=== PATIENT | female | born 1995 | race Caucasian/White ===

== ENCOUNTER 2019-09-09 01:33 | Day surgery (SDC) | payer OTHER, SELFPAY ==
--- NOTE | 2019-09-07 14:41 | PM.IMHP ---
H&P: HPI History of Present Illness Chief complaint: left ovarian cyst Narrative: Lia Ontiveros is a 23 year old female 0 was admitted for laparoscopy and left cystectomy. She has had pain and discomfort for more than a month. Originally she had fever and vomiting and some loose stools. She then developed left lower quadrant pain. Her STD testing was negative and the pain has worsened. She underwent ultrasound which showed a complex cystic structure in the left ovary. There is I suggested fluid present as well as free fluid bilaterally. Risks and benefits of laparoscopy were reviewed. She has a history of endometriosis and has undergone laparoscopy in the past she had all questions answered. She asked to proceed Review of Systems Review of Systems: All systems reviewed & are unremarkable except as noted in HPI and below Meds Home Medications and Allergies Allergies Allergy/AdvReac Type Severity Reaction Status Date / Time No Known Allergies Allergy Unverified 09/13/18 08:36 Exam Const: General: no acute distress Eyes: General: appearance normal, both eyes and all related structures Neck: Neck: supple and no JVD Thyroid: thyroid normal Resp: Effort & Inspection: normal respiratory effort Auscultation: clear to auscultation bilaterally Cardio: Rate: regular rate Rhythm: regular rhythm GI: Inspection: non-distended GI Palp: Yes Soft to palpation, No Tenderness to palpation present (GI) and No Guarding due to palpation present (GI) Auscultation: normal bowel sounds : External Female Exam: normal external appearance Speculum Exam - Vagina: normal appearance of the vagina and normal vaginal discharge Speculum Exam - Cervix: normal appearance of the cervix and Cervical tenderness present (bilateral left greater and full) Bimanual exam- vagina & uterus: uterine size normal Skin: General skin exam: no rashes or lesions noted Extrem: General: normal to inspection and no edema Psych: Mental Status: mental status grossly normal Affect: normal affect Assessment and Plan Additional Plan impression: Complex left ovarian cyst and pelvic pain Plan: laparoscopy with left ovarian cystectomy
[2019-09-07 14:46] VITALS: BMI 31.9
[2019-09-09] VITALS (8 sets, daily range): BP systolic 83–127; BP diastolic 37–74; PULSE 63–98; RESP 14–19; TEMP 36.2–36.4; O2SAT 97–100
--- NOTE | 2019-09-09 06:52 | WPDHPUPDATE1 ---
History and Physical Update Update Date/Time: 09/09/19 06:52 History and Physical has been reviewed, including an updated exam of the patient. There are NO changes in the patient's condition. Risks, benefits, and alternatives have been discussed and questions answered. Patient agrees to proceed with procedure.
[2019-09-09] MEDS: LACTATED RINGERS 1,000 ML 30 ML IV CONT ×2 (08:45→10:33)
[2019-09-09] MEDS: SCOPOLAMINE 1.5 MG PATCH TRANSDERM (09:19)
[2019-09-09] MEDS: ONDANSETRON INJ 4 MG/2 ML VIAL IV PUSH (09:19)
--- NOTE | 2019-09-09 10:23 | PM.PROC ---
Procedure Note - Detailed Date of procedure: 09/09/19 Pre-op diagnosis: left ovarian cyst Surgeon: Nicolas Pinto MD Postop diagnosis: Hemorrhagic cyst with hemato peritoneum Procedure: Laparoscopy with destruction of left ovarian cyst Anesthesia: General endotracheal EBL: 5cc Findings: Normal-appearing right ovary and tube normal appearing uterus, about 4cm hemorrhagic cyst with blood in the peritoneum. Normal-appearing appendix Complications: None Description of procedure the patient was prepped and draped in the normal sterile fashion and placed in the dorsal lithotomy position. Under excellent general endotracheal anesthesia weighted speculum placed in posterior fornix of vagina. The anterior lip of the cervix was grasped with a single-tooth tenaculum. The Clark's cannula was inserted the cervix and attached to the single-tooth to be used later for uterine manipulation. The bladder was drained of clear fluid. The remainder of the instruments removed. The gloves were changed. The Veress needle was passed in the abdomen after a infraumbilical incision was made with the 11 blade. This was the abdomen was filled [id number]. The 5mm trocar was advanced directly in the abdomen. No injury seen hemato perineum and the remainder of the findings were noted. A suprapubic incision made and the 5mm trocar advanced under direct visualization assuring no injury. The metal peritoneum was irrigated. A 4-5 cm hemorrhagic cyst was seen on the left ovary. This was opened in linear fashion and the clot and debris removed removed. Hemostasis was assured in the ovary appeared normal after this procedure. The lower site was then removed. The upper site removed after gas removed from the peritoneum. The incisions were closed with 4 Monocryl and glue. The patient went to recovery in satisfactory condition. All sponge, needle, instrument counts were correct. There were no immediate complications
[2020-09-10 14:28] VITALS: BMI 28.0
== END 2019-09-09 12:27 | disposition home or self-care (01) ==
PROVIDERS: PCP Internal Medicine; Visit Provider Obstetrics & Gynecology
PROC: (CPT 49320; principal; 2019-09-09 09:30)
DX: N83.202 Unspecified ovarian cyst, left side (principal); R10.2 Pelvic and perineal pain
CPT/HCPCS: 58662; 36415; 86850; 86900; 86901; A9270; J0330; J1100; J2250; J2405; J2704; J3010; J7030; J7120

== ENCOUNTER 2020-09-03 13:45 | Outpatient (CLI) | payer OTHER, SELFPAY ==
--- NOTE | ~2020-09-03 | US_ITS ---
EXAMINATION: US pelvic complete w TV DATE: 09/03/2020 15:24 INDICATION: Pelvic pain. TECHNIQUE: Multiple transabdominal and transvaginal sonographic images of the pelvis were obtained. COMPARISON: None. FINDINGS: TRANSABDOMINAL ULTRASOUND: The uterus measures 6.0 x 3.1 x 4.1 cm. There is no free fluid in the pelvis. TRANSVAGINAL ULTRASOUND: The endometrial complex measures 9 mm in thickness. The right ovary measures 5.7 x 5.0 x 4.9 cm. In t he right ovary, there is a 4.8 cm mixed solid and cystic mass without internal vascular flow. The lef t ovary measures 1.9 x 1.4 x 1.9 cm. There is normal vascular flow in the ovaries. IMPRESSION: 1. 4.7 cm mass in right ovary, likely a hemorrhagic cyst. Pelvis ultrasound is recommended in 6-12 we eks. Reviewed, dictated and finalized at location A. [employer] IMPRESSION: 1. 4.7 cm mass in right ovary, likely a hemorrhagic cyst. Pelvis ultrasound is recommended in 6-12 weeks.
[2020-09-03 13:57] LABS: Basophils Absolute Auto 0.05 K/mm3 (0.00-0.10); Basophils Percent Auto 0.5 % (0.0-1.0); Eosinophils Absolute Auto 0.04 K/mm3 (0.02-0.50); Eosinophils Percent Auto 0.4 % (1.0-6.0); Hemoglobin 12.9 g/dL (12.0-15.0); Immature Granulocyte Absolute 0.02 K/mm3 (0.00-0.00); Immature Granulocyte Percent A 0.2 % (0.0-0.0); Lymphocytes Absolute Auto 2.37 K/mm3 (1.10-4.50); Mean Corpuscular HGB Conc 33.1 g/dL (32.0-36.0); Mean Corpuscular Hemoglobin 28.9 pg (27.0-31.0); Mean Corpuscular Volume 87.4 fL (78.0-102.0); Mean Platelet Volume 9.9 fl (9.2-11.8); Monocytes Absolute Auto 0.45 K/mm3 (0.10-0.90); Monocytes Percent Auto 4.6 % (2.0-11.0); Neutrophils Percent Auto 70.3 % (50.0-70.0); Platelet Count Result 297 K/mm3 (150-420); Red Blood Count 4.46 M/mm3 (4.20-5.40); Red Cell Distribution Width 12.4 % (11.6-14.4); White Blood Count 9.9 K/mm3 (4.8-10.8)
[2020-09-03 14:13] LABS: Alanine Aminotransferase 27 U/L (14-59); Albumin Level 4.2 g/dL (3.4-5.0); Alkaline Phosphatase 59 U/L (46-116); Anion Gap 11 mmol/L (8-16); Aspartate Amino Transferase 15 U/L (15-37); Bilirubin,Total 0.4 mg/dL (0.00-1.00); Blood Urea Nitrogen 8 mg/dL (7-18); Calcium 8.6 mg/dL (8.5-10.1); Carbon Dioxide 27 mmol/L (21-32); Chloride 102 mmol/L (98-108); Estimated Glomerular Filt Rate > 60; Glucose 121 mg/dL (70-99); Osmolality Calculated 289 mOsm/kg (285-295); Potassium 3.6 mmol/L (3.5-5.1); Sodium 140 mmol/L (136-145); Total Protein 7.8 g/dL (6.4-8.2)
[2020-09-03 14:14] LABS: SPREG INTERNAL CONTROL Positive; Serum Qual hCG Negative
[2020-09-03 14:52] LABS: Add Urine Microscopic? YES; Appearance Urine Clear (Clear); Bilirubin Urine Negative (Negative); Blood Urine Negative (Negative); Color Urine Yellow (Yellow); Glucose Urine UA Negative (Negative); Ketones Urine Negative (Negative); Leukocyte Esterase Ur Trace (Negative); Nitrate Urine Negative (Negative); Protein Urine Negative (Negative); Specific Grav Ur 1.025 (1.010-1.020); Urobilinogen Urine 0.2 mg/dL (0.2-1.0)
[2020-09-03 15:02] LABS: Bacteria Urine 1+ /hpf; Mucus Urine Moderate /lpf; RBC Urine None seen /hpf (0-2); Squamous Epithelial Cell Urine Few /hpf (Few); WBC Urine 0-3 /hpf (0-3)
== END 2020-09-03 13:46 | disposition home or self-care (01) ==
LOC: CHSLAB 13:47
PROVIDERS: PCP Internal Medicine; Visit Provider Internal Medicine
DX: R10.2 Pelvic and perineal pain (principal); N80.9 Endometriosis, unspecified
CPT/HCPCS: 36415; 76830; 76856; 80053; 81001; 84703; 85025

== ENCOUNTER 2020-09-11 00:22 | Outpatient (CLI) | payer OTHER, SELFPAY ==
[2020-09-11 19:18] LABS: SARS-CoV-2 RNA PCR Negative
== END 2020-09-11 00:23 | disposition home or self-care (01) ==
LOC: ANHCOVIDDT 00:22
PROVIDERS: PCP Internal Medicine; Visit Provider Obstetrics & Gynecology
DX: Z20.822 Contact with and (suspected) exposure to COVID-19 (principal)
CPT/HCPCS: C9803; U0003; U0005

== ENCOUNTER 2020-09-11 08:26 | Outpatient (CLI) | payer OTHER, SELFPAY | END 2020-09-11 08:27 | disposition home or self-care (01) | LOC: ANHSURGERY 08:31 | PROVIDERS: PCP Internal Medicine; Visit Provider Obstetrics & Gynecology | DX: N83.201 Unspecified ovarian cyst, right side (principal) | CPT/HCPCS: 36415; 86850; 86900; 86901 ==

== ENCOUNTER 2020-09-14 01:37 | Day surgery (SDC) | payer OTHER, SELFPAY ==
[2020-09-10 14:46] VITALS: BMI 28.0
--- NOTE | 2020-09-11 10:10 | P.HP_ITS ---
H&P: HPI History of Present Illness Date/Time: 09/11/20 10:10 Chief Complaint: pain/r ov cyst Narrative: Lia Ontiveros is a 24 year old female G0 who is admitted for diagnostic laparoscopy right ovarian cystectomy, and possible right salpingo-oophorectomy. She had pain discomfort and dyspareunia. She has a history of endometriosis. She has an ultrasound showing a 5x5cm complex cyst. Risks and benefits reviewed including gas was of , aspiration pneumonia, bleeding, transfusion, perforation injury to bowel, bladder, ureters, or other internal organs with need for laparotomy. She received the [employer] handout entitled laparoscopy. She had all questions answered. She asked to proceed Review of Systems Review of Systems: All systems reviewed & are unremarkable except as noted in HPI and below PMFSH Past Medical History Medical History Healthy adult Social History Social History Smoking status: Never smoker Second hand tobacco smoke exposure: No Alcohol intake: current Drinks per week: 1 Substance use: never Substance use type: does not use Additional living arrangements comments: LIVES WITH [facility] Spiritual care concerns: No Meds Home Medications and Allergies Home Medications Medication Instructions Recorded Confirmed Type No Home Medications 09/10/20 09/10/20 History Allergies Allergy/AdvReac Type Severity Reaction Status Date / Time No Known Allergies Allergy Unverified 09/10/20 14:27 Exam Const: General: no acute distress Eyes: General: appearance normal, both eyes and all related structures Neck: Neck: supple and no JVD Thyroid: thyroid normal Resp: Effort & Inspection: normal respiratory effort Auscultation: clear to auscultation bilaterally Cardio: Rate: regular rate Rhythm: regular rhythm GI: Inspection: non-distended GI Palp: Yes Soft to palpation, No Tenderness to palpation present (GI) and No Guarding due to palpation present (GI) Auscultation: normal bowel sounds : General: Yes bladder normal to inspection External Female Exam: normal external appearance Speculum Exam - Vagina: normal appearance of the vagina Speculum Exam - Cervix: normal appearance of the cervix Bimanual exam- vagina & uterus: uterine size normal Bimanual Exam- Adnexa, other: tender and Adnexal mass present on the right tender Skin: General skin exam: no rashes or lesions noted Extrem: General: normal to inspection and no edema Psych: Mental Status: mental status grossly normal Affect: normal affect Assessment and Plan Additional Plan impression: Complex right ovarian cyst and pain Plan: Laparoscopic right ovarian cystectomy / possible right salpingo- oophorectomy
--- NOTE | 2020-09-13 16:41 | WPDANESEPPF ---
Anes - Initial Pre Proc Eval Procedure: Operation Date: 09/14/20 10:30 Proposed Procedures p Laparoscopy Right Ovarian Cystectomy, Possible Right Salpingo Oophorectomy - Nicolas Pinto MD Date/Time: 09/13/20 16:41 Surgeon: Nicolas Pinto MD Pre Op Diagnosis: Pelvic Pain, Right Ovarian Mass Patient Data Age: 24 Gender: F Height: 1.73 m Weight: 83.63 kg Allergies Allergy/AdvReac Type Severity Reaction Status Date / Time No Known Allergies Allergy Unverified 09/10/20 14:27 Home Medications Medication Instructions Recorded Confirmed Type hydrocodone-acetaminophen 1 tablet PO Q4H PRN #30 tablet 09/14/20 Rx Patient hx anesthesia problems: none Family hx anesthesia problems: none PMFSH Past Medical History Medical History (Updated 09/14/20 @ 07:09 by Nicolas Pinto MD) Endometriosis Healthy adult Overweight (BMI 25.0-29.9) Scoliosis Social History Social History Smoking status: Never smoker Second hand tobacco smoke exposure: No Alcohol intake: current Drinks per week: 1 Substance use: never Substance use type: does not use Living arrangements: other Additional living arrangements comments: LIVES WITH [facility] Spiritual care concerns: No Anes - Eval Final PreProcedure Day of Procedure 09/13/20 16:41 Patient weight: overweight Heart: regular rate and rhythm Lungs: clear to auscultation and normal air movement Airway: Mallampati scale class II Neurological: alert and oriented Last oral intake: >/= 8 hours ASA classification: II Emergent: no Anesthetic plan: proceed Anesthesia type and monitoring: general ETT Informed Consent: The patient's anesthetic plan and its attendant risks and benefits were discussed with the patient/family/POA. Questions were solicited and answers provided to the satisfaction of the patient/family/POA.
[2020-09-14] VITALS (9 sets, daily range): BP systolic 93–125; BP diastolic 51–81; PULSE 51–85; RESP 11–18; TEMP 36.4–36.7; O2SAT 99–100; BMI 29.3
--- NOTE | 2020-09-14 07:08 | WPDHPUPDATE1 ---
History and Physical Update Update Date/Time: 09/14/20 07:08 History and Physical has been reviewed, including an updated exam of the patient. There are NO changes in the patient's condition. Risks, benefits, and alternatives have been discussed and questions answered. Patient agrees to proceed with procedure.
[2020-09-14] MEDS: LACTATED RINGERS 1,000 ML 30 ML IV CONT ×2 (09:08→11:23)
[2020-09-14] MEDS: ACETAMINOPHEN 500 MG TABLET 1000 MG PO (09:09)
[2020-09-14] MEDS: KETOROLAC 15 MG/ML VIAL (*BKC) IV PUSH (09:09)
--- NOTE | 2020-09-14 11:24 | PM.PROC ---
Procedure Note - Detailed Date of procedure: 09/14/20 Pre-op diagnosis: Pelvic Pain, Right Ovarian Mass Surgeon: Nicolas Pinto MD Postop diagnosis: Pelvic pain/right ovarian cyst/endometriosis Anesthesia: General endotracheal Procedure: Laparoscopic destruction of right ovarian cyst. Destruction of left ovarian cyst. Destruction of endometriosis. EBL: 5cc Findings: Normal-appearing uterus. A large right follicular cyst which was drained of clear fluid. Endometrial implants along the right and left uterus sacral ligaments. Complications: None Description of procedure: The patient was prepped draped in normal sterile fashion and placed in the dorsal lithotomy position. Under excellent general endotracheal anesthesia weighted speculum was placed in the posterior fornix of vagina. Anterior lip of the cervix grasped with a single-tooth tenaculum and the Clark's cannula inserted and attached to be used later for uterine manipulation. The bladder was emptied of clear urine. The weighted speculum was removed. The gloves were changed. An infraumbilical incision made and the Veress needle passed in the abdomen. The abdomen was filled with CO2 gas [id number]. The 5mm trocar advanced in the abdomen under direct visualization assuring no injury. The patient placed in Trendelenburg and a suprapubic incision made. Endometrial implants were seen along the left and right uterosacral ligament. The left ovary was adherent to a endometrial implant in the ovarian fossa. This was sharply dissected and the endometrial implant destroyed with monopolar cautery. The uterus sacral ligament on the right contained an endometrial implant and this was grasped and biopsied and sent for pathology pathological review. Irrigation was undertaken to clear the large right ovarian cyst was opened in linear fashion and drained of serous fluid the interior of the cyst appeared benign and non endometrioma. Photo documentation undertaken. No other abnormalities were seen. Irrigation was undertaken to clear. The gas removed from the abdomen. The lower site removed. The upper site removed. Incisions closed with 4 O Monocryl and glue. All sponge, needle, instrument counts were correct. There were no immediate complications
[2020-09-14] MEDS: fentaNYL CITRATE INJ (*CRX) 100 MCG/2 ML VIAL 25 MCG IV PUSH ×6 (11:48→12:00)
== END 2020-09-14 13:05 | disposition home or self-care (01) ==
PROVIDERS: PCP Internal Medicine; Visit Provider Obstetrics & Gynecology
PROC: (CPT 49320; principal; 2020-09-14 10:30)
DX: R10.2 Pelvic and perineal pain (principal); N83.202 Unspecified ovarian cyst, left side; N83.201 Unspecified ovarian cyst, right side; N80.3 Endometriosis of pelvic peritoneum
CPT/HCPCS: 58662; 88305; A9270; J0330; J1100; J1885; J2250; J2405; J2704; J3010; J7120

== ENCOUNTER 2021-10-14 10:30 | Outpatient (RCR) | payer BC, OTHER, SELFPAY ==
[2021-10-14 11:42] VITALS: BP 117/73; PULSE 106
== END 2021-12-16 08:12 | disposition home or self-care (01) ==
LOC: ANHOBOP 10:30
PROVIDERS: PCP Internal Medicine; Visit Provider Obstetrics & Gynecology
DX: O36.8130 Decreased fetal movements, third trimester, not applicable or unspecified (principal); Z3A.29 29 weeks gestation of pregnancy
CPT/HCPCS: 59025

== ENCOUNTER 2021-12-02 14:55 | Outpatient (CLI) | payer BC, OTHER, SELFPAY ==
[2021-12-02] VITALS (9 sets, daily range): BP systolic 100–130; BP diastolic 51–80; PULSE 79–93; TEMP 37.3; BMI 36.1
[2021-12-02 15:49] LABS: Basophils Percent Auto 0.3 % (0.2-1.2); Eosinophils Absolute Auto 0.1 K/mm3 (0-0.3); Eosinophils Percent Auto 0.7 % (0-4.4); Hematocrit 32.9 % (37.0-47.0); Hemoglobin 10.9 g/dL (12.0-15.0); Immature Granulocyte Absolute 0.07 K/mm3 (0.00-0.031); Immature Granulocyte Percent A 0.5 % (0-0.5); Lymphocytes Absolute Auto 2.25 K/mm3 (0.9-3.2); Lymphocytes Percent Auto 17.3 % (18.3-44.2); Mean Corpuscular HGB Conc 33.1 g/dl (32-36); Mean Corpuscular Hemoglobin 28.7 pg (26-34); Mean Corpuscular Volume 86.6 fl (80-100); Mean Platelet Volume 10.6 fl (7.4-10.4); Monocytes Absolute Auto 0.5 K/mm3 (0.1-0.6); Neutrophils Absolute Auto 10.1 K/mm3 (1.3-6.7); Neutrophils Percent Auto 77.2 % (45.5-73.1); Platelet Count Result 256 k/mm3 (150-375); Red Cell Distribution Width 12.9 % (11.5-14.5)
[2021-12-02 16:00] LABS: Alanine Aminotransferase 16 U/L (4-35); Albumin Level 3.2 g/dL (3.5-5.1); Alkaline Phosphatase 107 U/L (38-126); Anion Gap 6 mmol/L (8-16); Aspartate Amino Transferase 20 U/L (14-36); Bilirubin,Total 0.2 mg/dL (0.2-1.3); Blood Urea Nitrogen 5 mg/dL (7-17); Calcium 8.3 mg/dL (8.4-10.2); Carbon Dioxide 19 mmol/L (22-30); Chloride 109 mmol/L (98-107); Estimated CRCL calculation 188 ml/min; Estimated Glomerular Filt Rate > 60; Glucose 127 mg/dL (65-110); Potassium 3.3 mmol/L (3.4-5.0); Sodium 134 mmol/L (137-145); Uric Acid 4.1 mg/dL (2.5-7.5)
[2021-12-02 16:07] LABS: Add Urine Microscopic? YES; Appearance Urine Cloudy (Clear); Bacteria Urine Trace /hpf; Bilirubin Urine Negative (Negative); Blood Urine 1+ (Negative); Color Urine Yellow (Yellow); Glucose Urine UA Negative (Negative); Ketones Urine Negative (Negative); Leukocyte Esterase Ur Trace LEU/UL (Negative); Mucus Urine Few /lpf; Nitrate Urine Negative (Negative); Protein Urine Negative (Negative); RBC Urine 51-75 /hpf (0-2); Specific Grav Ur 1.015 (1.001-1.035); Squamous Epithelial Cell Urine Many /hpf (Few); Urobilinogen Urine Negative mg/dL (<2.0)
[2021-12-02 16:38] LABS: Creatinine Urine 118.8 mg/dL
[2021-12-02 16:44] LABS: Total Protein Urine Random < 5 mg/dL; Ur Ttl Prot Creatinine Ratio < 0.04 mg/mg (0-0.20)
--- NOTE | 2021-12-02 16:55 | PC.NURSE ---
Dr. Izzy Malcolm informed of lab results, BP's, reactive NST, and arrhythmia- audible dropped beat noted. Orders received for discharge. Pt has appointment in office for next week.
== END 2021-12-02 17:03 | disposition home or self-care (01) ==
LOC: ANHOBOP 14:58 → ANHOBPP 14:59
PROVIDERS: PCP Internal Medicine; Visit Provider Obstetrics & Gynecology
DX: O13.9 Gestational [pregnancy-induced] hypertension without significant proteinuria, unspecified trimester (principal); Z3A.00 Weeks of gestation of pregnancy not specified
CPT/HCPCS: 36415; 59025; 80053; 81001; 82570; 84156; 84550; 85025; 99199

== ENCOUNTER 2021-12-15 17:51 | Inpatient (IN) | payer BC, OTHER, SELFPAY ==
[2021-12-15] VITALS (11 sets, daily range): BP systolic 119–138; BP diastolic 55–81; PULSE 70–81; TEMP 36.6; BMI 35.9
--- NOTE | 2021-12-15 18:34 | LDADM ---
This patient, Lia Morocho, was admitted to Labor/Delivery/Recovery 108 on 12/15/21 at 17:51. Plans for labor, pain management and were discussed with patient. Patient/family oriented to hospital policies and general routines including ID bracelet, bed and alarms, visiting hours, pain management, procedures, bathroom and other care routines, personal items, smoking policy, room service/diet and guest tray routines, security routines, and visiting hours. Patient/Family are encouraged to report perceived risks to care and to ask questions if they do not understand what they are told or what they should do. See OBIX for further documentation.
[2021-12-15] MEDS: LACTATED RINGERS 1,000 ML 125 ML IV CONT (18:51)
[2021-12-15] MEDS: AMPICILLIN 2 GM/NS 100 ML 2 GM/100 ML BAG IVPB (18:52)
[2021-12-15 18:57] LABS: Basophils Percent Auto 0.3 % (0.2-1.2); Eosinophils Absolute Auto 0.1 K/mm3 (0-0.3); Eosinophils Percent Auto 0.7 % (0-4.4); Hematocrit 32.8 % (37.0-47.0); Hemoglobin 10.6 g/dL (12.0-15.0); Immature Granulocyte Absolute 0.07 K/mm3 (0.00-0.031); Immature Granulocyte Percent A 0.6 % (0-0.5); Lymphocytes Percent Auto 20.1 % (18.3-44.2); Mean Corpuscular HGB Conc 32.3 g/dl (32-36); Mean Corpuscular Volume 86.5 fl (80-100); Mean Platelet Volume 10.8 fl (7.4-10.4); Monocytes Absolute Auto 0.7 K/mm3 (0.1-0.6); Monocytes Percent Auto 5.9 % (2.6-8.5); Neutrophils Percent Auto 72.4 % (45.5-73.1); Platelet Count Result 276 k/mm3 (150-375); Red Blood Count 3.79 M/mm3 (4.2-5.4); Red Cell Distribution Width 13.1 % (11.5-14.5); White Blood Count 12.4 K/mm3 (4.5-10.0)
[2021-12-15 19:07] LABS: Uric Acid 4.3 mg/dL (2.5-7.5)
[2021-12-15] MEDS: DINOPROSTONE 10 MG VAG INSERT VAGINAL (19:31)
--- NOTE | 2021-12-15 19:54 | WPDANESEPP ---
Anes - Eval Pre Procedure Date/Time: 12/15/21 19:54 Pre Op Diagnosis: IOL Patient Data Age: 26 Gender: F Height: 1.73 m Weight: 107 kg Last Vital Signs Temp 36.6 C 12/15/21 19:46 Pulse 77 12/15/21 19:46 BP 138/66 12/15/21 19:46 Allergies Allergy/AdvReac Type Severity Reaction Status Date / Time No Known Allergies Allergy Verified 09/14/20 08:58 Home Medications Medication Instructions Recorded Confirmed Type PNV cmb#95-ferrous fumarate-FA 1 tablet PO DAILY 12/02/21 12/02/21 History [] Laboratory Tests 12/15/21 12/15/21 12/15/21 18:48 18:48 18:48 WBC 12.4 K/mm3 H K/mm3 (4.5-10.0) RBC 3.79 M/mm3 L M/mm3 (4.2-5.4) Hgb 10.6 g/dL L g/dL (12.0-15.0) Hct 32.8 % L % (37.0-47.0) MCV 86.5 fl fl (80-100) MCH 28.0 pg pg (26-34) MCHC 32.3 g/dl g/dl (32-36) RDW 13.1 % % (11.5-14.5) Plt Count 276 k/mm3 k/mm3 (150-375) MPV 10.8 fl H fl (7.4-10.4) Immature Gran % (Auto) 0.6 % H % (0-0.5) Neut % (Auto) 72.4 % % (45.5-73.1) Lymph % (Auto) 20.1 % % (18.3-44.2) [place] % (Auto) 5.9 % % (2.6-8.5) Eos % (Auto) 0.7 % % (0-4.4) Baso % (Auto) 0.3 % % (0.2-1.2) Lymph # (Auto) 2.50 K/mm3 K/mm3 (0.9-3.2) [place] # (Auto) 0.7 K/mm3 H K/mm3 (0.1-0.6) Eos # (Auto) 0.1 K/mm3 K/mm3 (0-0.3) Baso # (Auto) 0.0 K/mm3 K/mm3 (0.0-0.1) Abs Immat Gran (auto) 0.07 K/mm3 H K/mm3 (0.00-0.031) Absolute Neuts (auto) 9.0 K/mm3 H K/mm3 (1.3-6.7) Absolute Nucleated RBC 0.0 K/mm3 K/mm3 (0.0-0.012) Nucleated RBC % 0.0 % % (0.0-0.2) Uric Acid 4.3 mg/dL mg/dL (2.5-7.5) RPR Pending Patient hx anesthesia problems: none Family hx anesthesia problems: none Results Review: All pre-operative results and documents have been reviewed as part of the pre-operative evaluation. [facility] Past Medical History Medical History Endometriosis Healthy adult Overweight (BMI 25.0-29.9) Scoliosis Family History Family History Father Colon cancer Social History Social History Smoking status: Former smoker Tobacco type: cigarettes Second hand tobacco smoke exposure: No Alcohol intake: current Drinks per week: 1 Substance use: never Substance use type: does not use Additional living arrangements comments: LIVES WITH SO Spiritual care concerns: No Exam Day of Procedure 12/15/21 19:54 Patient weight: obese Heart: regular rate and rhythm Lungs: clear to auscultation Airway: Mallampati scale Neurological: alert and oriented
[2021-12-15 21:46] LABS: Alanine Aminotransferase 14 U/L (6-35); Albumin Level 3.6 g/dL (3.5-5.1); Alkaline Phosphatase 118 U/L (38-126); Anion Gap 8 mmol/L (8-16); Aspartate Amino Transferase 22 U/L (14-36); Bilirubin,Total 0.2 mg/dL (0.2-1.3); Blood Urea Nitrogen 8 mg/dL (7-17); Calcium 9.1 mg/dL (8.4-10.2); Carbon Dioxide 20 mmol/L (22-30); Chloride 108 mmol/L (98-107); Estimated CRCL calculation 185 ml/min; Estimated Glomerular Filt Rate > 60; Glucose 96 mg/dL (65-110); Potassium 3.7 mmol/L (3.4-5.0); Sodium 136 mmol/L (137-145)
[2021-12-16] VITALS (168 sets, daily range): BP systolic 105–195; BP diastolic 40–141; PULSE 37–181; RESP 16; TEMP 36–36.5; O2SAT 77–100
[2021-12-16] MEDS: AMPICILLIN 1 GM/NS 50 ML 1 GM/50 ML BAG IVPB ×4 (00:10→13:03)
[2021-12-16] MEDS: CALCIUM CARBONATE (TUMS) 500 MG (200 MG ELEMENTAL) PO (00:36)
--- NOTE | 2021-12-16 07:43 | PM.IMHP ---
H&P: HPI History of Present Illness Date/Time: 12/16/21 07:43 6-year-old 1 para 0 whose last menstrual period was 04/25/2021, EDC is 12/30/2021, confirmed by early ultrasound presents at 39 weeks gestation for induction of labor she is positive for group B strep and has elevated blood pressures. PH labs have been drawn and within normal Chief Complaint: elevated pressure at term with positive group B strep Review of Systems Review of Systems: All systems reviewed & are unremarkable except as noted in HPI and below PMFSH Past Medical History Medical History Endometriosis Healthy adult Overweight (BMI 25.0-29.9) Scoliosis Family History Family History Father Colon cancer Social History Social History Smoking status: Former smoker Tobacco type: cigarettes Second hand tobacco smoke exposure: No Alcohol intake: current Drinks per week: 1 Substance use: never Substance use type: does not use Additional living arrangements comments: LIVES WITH [facility] Spiritual care concerns: No Meds Home Medications and Allergies Home Medications Medication Instructions Recorded Confirmed Type PNV cmb#95-ferrous fumarate-FA 1 tablet PO DAILY 12/02/21 12/02/21 History [] Allergies Allergy/AdvReac Type Severity Reaction Status Date / Time No Known Allergies Allergy Verified 09/14/20 08:58 Vital Signs Vital Signs - 24 hr 12/15/21 19:03 12/15/21 19:16 12/15/21 19:46 Temperature 97.9 F Pulse Rate 80 79 77 Blood Pressure 130/75 129/75 138/66 12/15/21 20:01 12/15/21 20:16 12/15/21 20:31 Temperature Pulse Rate 81 77 80 Blood Pressure 126/78 131/81 120/58 L 12/15/21 20:46 12/15/21 21:01 12/15/21 21:16 Temperature Pulse Rate 70 74 71 Blood Pressure 122/55 L 136/70 119/55 L 12/15/21 21:31 12/15/21 21:46 12/16/21 00:11 Temperature Pulse Rate 79 71 70 Blood Pressure 123/75 132/66 132/82 05/09/22 00:14 12/16/21 00:16 12/16/21 00:31 Temperature 97 F L Pulse Rate 95 95 Blood Pressure 127/77 116/60 12/16/21 00:46 12/16/21 01:01 12/16/21 04:42 Temperature Pulse Rate 82 88 81 Blood Pressure 137/70 120/68 141/66 H 12/16/21 04:46 12/16/21 04:47 12/16/21 05:01 Temperature 97 F L Pulse Rate 78 82 Blood Pressure 125/81 130/62 12/16/21 05:16 12/16/21 05:30 12/16/21 05:46 Temperature Pulse Rate 89 94 107 H Blood Pressure 123/72 140/83 126/71 12/16/21 06:01 12/16/21 06:16 12/16/21 06:31 Temperature Pulse Rate 105 H 104 H 90 Blood Pressure 123/82 139/79 142/84 H 12/16/21 06:46 12/16/21 07:01 12/16/21 07:16 Temperature Pulse Rate 98 98 91 Blood Pressure 135/80 129/76 128/72 12/16/21 07:31 Temperature Pulse Rate 85 Blood Pressure 132/78 Exam Const: General: no acute distress Eyes: General: appearance normal, both eyes and all related structures Neck: Neck: supple and no JVD Thyroid: thyroid normal Resp: Effort & Inspection: normal respiratory effort Auscultation: clear to auscultation bilaterally Cardio: Rate: regular rate Rhythm: regular rhythm GI: Inspection: non-distended GI Palp: Yes Soft to palpation, No Tenderness to palpation present (GI) and No Guarding due to palpation present (GI) Auscultation: normal bowel sounds : External Female Exam: normal external appearance Speculum Exam - Vagina: normal appearance of the vagina Speculum Exam - Cervix: normal appearance of the cervix ( cervix /1. AROM clear. FHTs reassuring) Skin: General skin exam: no rashes or lesions noted Extrem: General: normal to inspection and no edema Psych: Mental Status: mental status grossly normal Affect: normal affect H&P: Results Labs Labs: Short CBC 12/15/21 Range/Units 18:48 WBC 12.4 H (4.5-10.0) K/mm3 Hg
[2021-12-16] MEDS: OXYTOCIN 30 UNITS/NS 500 ML 30 UNITS/500 ML BAG 6 UNITS IV CONT (08:05)
[2021-12-16 08:20] LABS: Rapid Plasma Reagin Non-Reactive (NonReactive)
[2021-12-16 08:47] LABS: Amphetamine Screen Urine Negative (Negative); Barbiturate Screen Urine Negative (Negative); Benzodiazepines Screen Urine Negative (Negative); Cannabinoid Screen Urine Negative (Negative); Cocaine Screen Urine Negative (Negative); Methadone Screen Urine Negative (Negative); Opiate Screen Urine Negative (Negative); Phencyclidine Screen Urine Negative (Negative)
--- NOTE | 2021-12-16 12:05 | PM.OBPNLAB ---
Pain Control Date/time seen: 12/16/21 12:05 Pelvic Exam Dilation (cm): 4 Effacement (%): 90 station: -1 Amniotic membrane status: Leaking Contractions Monitor mode: External Contraction pattern: Regular
[2021-12-16] MEDS: fentaNYL CITRATE INJ (*CRX) 100 MCG/2 ML VIAL 50 MCG IV PUSH (12:11)
[2021-12-16] MEDS: LACTATED RINGERS 1,000 ML 125 ML IV CONT (13:04)
[2021-12-16] MEDS: fentaNYL CITRATE INJ (*CRX) 100 MCG/2 ML VIAL IV PUSH (13:28)
--- NOTE | 2021-12-16 16:15 | PM.OBPRVD ---
OB - Delivery Note Procedure Delivery date: 12/16/21 Procedure: mil Induction method: Per Cervidil Protocol Delivery augmentation: Rupture of Membranes and Pitocin Delivery monitor: External FHT and Internal Uterine Route of delivery: Episiotomy description: None Laceration Description: None Quantitative Blood Loss (ml): 59 Anesthesia type: Epidural Disposition: Floor [place] Baby Date of : 12/16/21 Time of : 16:06 Weeks of gestation at delivery: 39 Infant gender: Male presentation: vertex position: Right Occiput Anterior Placenta delivery description: Spontaneous Cord Vessel Description: 3 Vessels, Nuchal Cord and Clamped/Cut score one minute: 8 score five minutes: 9
[2021-12-16] MEDS: OXYTOCIN 30 UNITS/NS 500 ML 30 UNITS/500 ML BAG 125 UNITS IV CONT (16:37)
[2021-12-17 04:46] VITALS: BP 121/65; PULSE 82; RESP 16; TEMP 36.6; O2SAT 97
[2021-12-17 05:11] LABS: Hematocrit 31.3 % (37.0-47.0); Hemoglobin 10.1 g/dL (12.0-15.0)
--- NOTE | 2021-12-17 07:30 | PC.NURSE ---
PT introductions made and plan of care discussed per post , pain management, breast bottle feeding, daily care activities; Pt received such instructions per one to one discussion, mom baby care guide, demonstrations. PT sole recipient of such instructions and no barriers to learning identified. PT verbalized understanding of such care.
--- NOTE | 2021-12-17 07:42 | PM.OBPNVD ---
OB - PN: Subj Subjective Date/time seen: 12/17/21 07:42 Patient comments: no complaints and pain well controlled baby status: doing well OB - PN: Obj Data Labs CBC & Chem 7: 12/17/21 04:56 12/15/21 18:48 Labs: Laboratory Results - last 24 hr 12/15/21 12/16/21 12/17/21 18:48 08:13 04:56 Hgb 10.1 L Hct 31.3 L Urine Opiates Screen Negative Urine Methadone Screen Negative Ur Barbiturates Screen Negative Ur Phencyclidine Scrn Negative Ur Amphetamine Screen Negative U Benzodiazepines Scrn Negative Urine Cocaine Screen Negative U Cannabinoids Screen Negative RPR Non-reactive Blood Type Antibody Screen 12/17/21 05:01 Hgb Hct Urine Opiates Screen Urine Methadone Screen Ur Barbiturates Screen Ur Phencyclidine Scrn Ur Amphetamine Screen U Benzodiazepines Scrn Urine Cocaine Screen U Cannabinoids Screen RPR Blood Type O Negative Antibody Screen Positive OB - PN A/P Plan day: 1 Plan: routine care Time Spent With Patient Time: Total time spent is greater than 50% in coordination of care (as documented) at patient's floor/unit and/or counseling patient: Time with patient: less than 15 minutes Review of Systems Review of Systems: All systems reviewed & are unremarkable except as noted in HPI and below Exam Const: General: no acute distress Eyes: General: appearance normal, both eyes and all related structures Neck: Neck: supple and no JVD Thyroid: thyroid normal Resp: Effort & Inspection: normal respiratory effort Auscultation: clear to auscultation bilaterally Cardio: Rate: regular rate Rhythm: regular rhythm GI: Inspection: non-distended GI Palp: Yes Soft to palpation, No Tenderness to palpation present (GI) and No Guarding due to palpation present (GI) Auscultation: normal bowel sounds : General: Yes bladder normal to palpation External Female Exam: normal external appearance Speculum Exam - Vagina: normal vaginal discharge and No vaginal bleeding Speculum Exam - Cervix: nontender Bimanual exam- vagina & uterus: bladder normal to palpation and No Cervical tenderness present OB/external & speculum: No vaginal bleeding Skin: General skin exam: no rashes or lesions noted Extrem: General: normal to inspection and no edema Psych: Mental Status: mental status grossly normal Affect: normal affect
[2021-12-17 07:55] VITALS: BP 130/88; PULSE 82; RESP 16; TEMP 36.4; O2SAT 98
--- NOTE | 2021-12-17 08:13 | WPDANLDPN2 ---
Anes-Prog Note L&D Date/Time: 12/17/21 08:13 Comfortable throughout: labor Neuraxial method: epidural Epidural/Spinal procedure site: clean & non-tender Neuro status: Neuro function grossly intact. Cardiovascular status: normal Respiratory status: normal Airway patency: baseline Mental status: baseline Post-Op hydration status: normal Vital Signs: Last Vital Signs Temp 36.6 C 12/17/21 04:46 Pulse 82 12/17/21 04:46 Resp 16 12/17/21 04:46 BP 121/65 12/17/21 04:46 Pulse Ox 97 12/17/21 04:46 Pain score (VAS): 0 I/O: Intake & Output 12/16/21 12/17/21 12/17/21 23:59 07:59 15:59 Intake Total 1000 Output Total 195 Balance 805 Post-procedural complaints: none Patient feedback: Patient satisfied with anesthetic care.
[2021-12-17 08:34] VITALS: PULSE 82; RESP 16; O2SAT 98
[2021-12-17] MEDS: IBUPROFEN 600 MG TABLET PO ×3 (08:34→23:34)
[2021-12-17] MEDS: DOCUSATE SODIUM 100 MG CAPSULE PO ×2 (08:34→17:28)
[2021-12-17] MEDS: BENZOCAINE 20% AER SPR (*SP) 56 GM CAN 1 SPRAY TOPICAL (08:34)
[2021-12-17] MEDS: WITCH HAZEL 40 PADS 1 PAD TOPICAL (08:34)
[2021-12-17] MEDS: MULTIVIT/MIN/PREN/FOL AC/IRON TABLET 1 TAB PO (08:35)
[2021-12-17 11:41] VITALS: BP 129/77; PULSE 90; RESP 16; TEMP 36.7; O2SAT 100
--- NOTE | 2021-12-17 18:43 | PC.NURSE ---
Patient viewed the discharge video [facility], The First Two Weeks . Patient was given the opportunity and encouraged to ask questions. Patient verbalized understanding of information shared and has been given the mother/baby guide for home reference.
[2021-12-17 20:45] VITALS: BP 108/64; PULSE 78; RESP 16; TEMP 36.9; O2SAT 100
[2021-12-18] MEDS: RHO(D) IMMUNE GLOBULIN 300 MCG/2 ML SYRINGE IM (05:15)
[2021-12-18] MEDS: IBUPROFEN 600 MG TABLET PO (05:15)
--- NOTE | 2021-12-18 07:43 | PM.DS ---
DS: Admitting Diagnosis Discharge Date 12/18/2021 Admitting Diagnosis term with elevated blood pressures DS: Summary Hospital Course Hospital Course: patient was admitted for induction of labor secondary to mildly elevated blood pressures at term. She had a spontaneous vaginal delivery which was unremarkable. Her hospital course was unremarkable she remained afebrile. Blood pressures were stable without treatment. Routine discharge instructions were given Time Spent with Patient Time attestation: Total time spent providing and/or coordinating discharge services: Exam Const: General: no acute distress Eyes: General: appearance normal, both eyes and all related structures Neck: Neck: supple and no JVD Thyroid: thyroid normal Resp: Effort & Inspection: normal respiratory effort Auscultation: clear to auscultation bilaterally Cardio: Rate: regular rate Rhythm: regular rhythm GI: Inspection: non-distended GI Palp: Yes Soft to palpation, No Tenderness to palpation present (GI) and No Guarding due to palpation present (GI) Auscultation: normal bowel sounds : General: Yes bladder normal to palpation External Female Exam: normal external appearance Speculum Exam - Vagina: normal vaginal discharge and No vaginal bleeding Speculum Exam - Cervix: nontender Bimanual exam- vagina & uterus: bladder normal to palpation and No Cervical tenderness present OB/external & speculum: No vaginal bleeding Skin: General skin exam: no rashes or lesions noted Extrem: General: normal to inspection and no edema Psych: Mental Status: mental status grossly normal Affect: normal affect DS: Data Data Completed and Pending Labs on day of discharge: Labs from last 24 hours 12/17/21 05:01 Blood Type O Negative Antibody Screen Positive Antibody Identification Inconclusive Antigen Identification Not Reportable ANDREW, IgG Interpret Not Performed ANDREW, Poly Interpret Negative ANDREW, Complement Interp Not Performed Screen Negative Baby's Blood Type O pos Baby's ANDREW Negative Doses of RhIg Required 1 Discharge Plan Discharge Attending physician on discharge: Nicolas Cruz Discharging Clinician: Nicolas Cruz Patient Disposition: Home, Self-Care Activity: may shower, no straining and pelvic rest Diet: heart healthy Patient Instructions: Antibiotic Form Stand Alone Forms: General Discharge Information Follow-up/Referrals: Nicolas Cruz MD [Physician] - Discharge Medications: No Action PNV cmb#95-ferrous fumarate-FA [] 28 mg iron- 800 mcg Tablet 1 tablet PO DAILY RF: 0 Date of admission: 12/15/21 17:51 Primary Care Provider: Lamar Viera Admitting Provider: Nicolas Cruz Attending physician on admission: Nicolas Cruz Condition: Stable
--- NOTE | 2021-12-18 07:45 | PM.OBPNVD ---
OB - PN: Subj Subjective Date/time seen: 12/18/21 07:45 Patient comments: no complaints and pain well controlled baby status: doing well OB - PN: Obj Data Labs CBC & Chem 7: 12/17/21 04:56 12/15/21 18:48 Labs: Laboratory Results - last 24 hr 12/17/21 05:01 Blood Type O Negative Antibody Screen Positive Antibody Identification Inconclusive Antigen Identification Not Reportable ANDREW, IgG Interpret Not Performed ANDREW, Poly Interpret Negative ANDREW, Complement Interp Not Performed Screen Negative Baby's Blood Type O pos Baby's ANDREW Negative Doses of RhIg Required 1 OB - PN A/P Plan day: 2 Plan: routine care, discharge home and follow up 6 weeks Time Spent With Patient Time: Total time spent is greater than 50% in coordination of care (as documented) at patient's floor/unit and/or counseling patient: Time with patient: less than 15 minutes Review of Systems Review of Systems: All systems reviewed & are unremarkable except as noted in HPI and below Exam Const: General: no acute distress Eyes: General: appearance normal, both eyes and all related structures Neck: Neck: supple and no JVD Thyroid: thyroid normal Resp: Effort & Inspection: normal respiratory effort Auscultation: clear to auscultation bilaterally Cardio: Rate: regular rate Rhythm: regular rhythm GI: Inspection: non-distended GI Palp: Yes Soft to palpation, No Tenderness to palpation present (GI) and No Guarding due to palpation present (GI) Auscultation: normal bowel sounds : General: Yes bladder normal to palpation External Female Exam: normal external appearance Speculum Exam - Vagina: normal vaginal discharge and No vaginal bleeding Speculum Exam - Cervix: nontender Bimanual exam- vagina & uterus: bladder normal to palpation and No Cervical tenderness present OB/external & speculum: No vaginal bleeding Skin: General skin exam: no rashes or lesions noted Extrem: General: normal to inspection and no edema Psych: Mental Status: mental status grossly normal Affect: normal affect
[2021-12-18 08:00] VITALS: PULSE 81; RESP 18; O2SAT 100
[2021-12-18 08:05] VITALS: BP 129/69; PULSE 81; RESP 18; TEMP 36.8; O2SAT 100
[2021-12-18] MEDS: MULTIVIT/MIN/PREN/FOL AC/IRON TABLET 1 TAB PO (10:26)
[2021-12-19 10:01] VITALS: BP 146/76; PULSE 89; RESP 20; TEMP 37.6; O2SAT 100
== END 2021-12-18 11:55 | disposition home or self-care (01) | DRG 807 ==
LOC: ANHLDR 18:09 → ANHOB2 12-16 20:44
PROVIDERS: Admitting Provider Obstetrics & Gynecology; PCP Internal Medicine; Visit Provider Obstetrics & Gynecology
DX: O13.4 Gestational [pregnancy-induced] hypertension without significant proteinuria, complicating childbirth (principal); Z37.0 Single live birth; Z3A.38 38 weeks gestation of pregnancy; O99.824 Streptococcus B carrier state complicating childbirth; O36.8330 Maternal care for abnormalities of the fetal heart rate or rhythm, third trimester, not applicable or unspecified; O69.1XX0 Labor and delivery complicated by cord around neck, with compression, not applicable or unspecified
CPT/HCPCS: 36415; 80053; 80307; 84550; 85014; 85018; 85025; 85461; 86592; 86850; 86880; 86900; 86901; 86902; 90384; A9270; J0290; J2590; J2790; J2795; J3010; J7120

== ENCOUNTER 2024-01-26 09:26 | Outpatient (CLI) | payer BC, SELFPAY | END 2024-01-26 09:27 | disposition home or self-care (01) | PROVIDERS: PCP Internal Medicine; Visit Provider Obstetrics & Gynecology | DX: Z01.818 Encounter for other preprocedural examination (principal); R10.2 Pelvic and perineal pain | CPT/HCPCS: 36415; 86850; 86900; 86901 ==

== ENCOUNTER 2024-01-28 00:16 | Day surgery (SDC) | payer BC, SELFPAY ==
[2024-01-22 15:31] VITALS: BMI 31.1
--- NOTE | 2024-01-22 15:47 | PC.NURSE ---
Report to the Outpatient Waiting Room, entrance under the green pavilion located off [facility], at time ___6:30AM____ on date _01/28/24 . Planned Procedure Time: ___8:30AM . Time changes happen often and if your time is changed the preop area will call you the afternoon before. - You and your visitor will be asked to self-screen and do not enter if you have any COVID symptoms. - A mask is optional within the hospital at this time. Patients may have clear liquids (water, carbonated beverages, clear teas, apple juice) until 3 hours prior to surgery with a maximum of 20 ounces. - No food from midnight until time of surgery. Take the following medications with a SIP of water the morning of surgery: ___NONE DO NOT STOP ANY OF YOUR OTHER PRESCRIPTION MEDICATIONS PRIOR TO SURGERY ?EXCEPT THE FOLLOWING Medications to discontinue per physician NONE Date to take last dose Please no make-up, nail [place], hairspray, perfume, deodorant, or body powder the day of surgery. No jewelry (including any body piercings) or valuables the day of surgery, leave them at home. Please take a shower or bath the night before, or the morning of, surgery with an antibacterial soap. Wear comfortable, loose fitting clothing. - Jewelry must be removed prior to entering the operating room. Rings and piercings that are not removed may be cut off. - The hospital will not accept responsibility for valuables. - Please leave all valuables, including medications, at home the day of surgery. If you are going home after surgery, a licensed armored truck driver must drive you home. - NO public transportation without another adult if you receive anesthesia. - We recommend that an adult stay with you for 24 hours following discharge. - We also recommend that you do not drive, make important decision, drink alcoholic beverages, or take any drugs that were not prescribed by your health care provider for at least 24 hours after your discharge time. Follow any additional instructions given to you from your surgeon. If you or anyone in your household have experienced Covid symptoms in the past week, please notify your surgeon or the nurse liaison at the phone number below for possible testing. Telephone instructions given to ____PATIENT and asked if any additional questions and then verbalized understanding. Patient advised to call surgeon office or pre surgery nurse liaison [phone] if any additional questions.
--- NOTE | 2024-01-26 12:27 | PM.IMHP ---
H&P: HPI History of Present Illness Date/Time: 01/26/24 12:27 Chief Complaint: Pelvic pain excessive heavy bleeding Narrative: 28-year-old female with known history of endometriosis made for laparoscopy hysteroscopy dilatation curettage. Risks and benefits reviewed exclusive of aspiration pneumonia bleeding and transfusion, perforation injury to bowel, bladder, ureters, or other internal organs with need for laparotomy. Two received the ACOG handouts entitled laparoscopy as well as hysteroscopy and dilatation curettage respectively. She had all questions answered Mr. Proceed. LÓPEZ Past Medical History Medical History Endometriosis Healthy adult Overweight (BMI 25.0-29.9) Scoliosis Family History Family History Father Colon cancer Social History Social History Smoking status: Former smoker Tobacco type: cigarettes Second hand tobacco smoke exposure: No Alcohol intake: current Drinks per week: 1 Substance use: never Substance use type: does not use Living arrangements: with family Additional living arrangements comments: LIVES WITH SO Spiritual care concerns: No Meds Home Medications and Allergies Home Medications Medication Instructions Recorded Confirmed Type No Home Medications 01/22/24 01/22/24 History Allergies Allergy/AdvReac Type Severity Reaction Status Date / Time No Known Allergies Allergy Verified 01/22/24 15:29 Exam Const: General: cooperative, healthy appearing and comfortable Nutritional Appearance: average body habitus Orientation/consciousness: oriented to person, oriented to place and oriented to time HENMT: Head: normal to inspection Resp: Effort & Inspection: normal respiratory effort Cardio: Rate: regular rate Rhythm: regular rhythm Heart sounds: S1 normal heart sound present and S2 normal heart sound present GI: Inspection: normal to inspection : External Female Exam: normal external appearance Speculum Exam - Vagina: normal appearance of the vagina Speculum Exam - Cervix: normal appearance of the cervix Bimanual exam- vagina & uterus: enlarged and Uterine tenderness Bimanual Exam- Adnexa, other: tender bilaterally Assessment and Plan Assessment and plan (1) Endometriosis: Code(s): N80.9 - Endometriosis, unspecified Status: Acute (2) Pelvic pain: Code(s): R10.2 - Pelvic and perineal pain Status: Acute (3) Excessive bleeding: Code(s): R58 - Hemorrhage, not elsewhere classified Status: Acute Assessment and Plan: Laparoscopy with hysteroscopy dilatation curettage
--- NOTE | 2024-01-28 05:31 | WPDHPUPDATE1 ---
History and Physical Update Update Date/Time: 01/28/24 05:31 History and Physical has been reviewed, including an updated exam of the patient. There are NO changes in the patient's condition. Risks, benefits, and alternatives have been discussed and questions answered. Patient agrees to proceed with procedure.
--- NOTE | 2024-01-28 06:43 | WPDANESEPPF ---
Anes - Initial Pre Proc Eval Procedure: Operation Date: 01/28/24 07:30 Proposed Procedures p Diagnostic Laparoscopy, Hysteroscopy Dilation and Curettage - Nicolas Malcolm MD Date/Time: 01/28/24 06:43 Surgeon: Nicolas Malcolm MD Pre Op Diagnosis: pelvic pain, irr bleeding Patient Data Age: 28 Gender: F Height: 1.73 m Weight: 93 kg Allergies Allergy/AdvReac Type Severity Reaction Status Date / Time No Known Allergies Allergy Verified 01/22/24 15:29 Home Medications Medication Instructions Recorded Confirmed Type hydrocodone 5 mg-acetaminophen 325 1 tablet PO Q4H PRN pain #20 tabs 01/28/24 Rx mg tablet Patient hx anesthesia problems: none Family hx anesthesia problems: none Results Review: All pre-operative results and documents have been reviewed as part of the pre-operative evaluation. PENDING SALE TO [facility] Past Medical History Medical History Endometriosis Healthy adult Overweight (BMI 25.0-29.9) Scoliosis Family History Family History Father Colon cancer Social History Social History Smoking status: Former smoker Tobacco type: cigarettes Second hand tobacco smoke exposure: No Alcohol intake: current Drinks per week: 1 Substance use: never Substance use type: does not use Living arrangements: with family Additional living arrangements comments: LIVES WITH SO Spiritual care concerns: No Anes - Eval Final PreProcedure Day of Procedure 01/28/24 06:43 Patient weight: overweight Heart: regular rate and rhythm Lungs: clear to auscultation Airway: Mallampati scale Neurological: alert and oriented Last oral intake: >/= 8 hours ASA classification: II Emergent: no Anesthetic plan: proceed Anesthesia type and monitoring: general ETT and standard monitoring Results Review: All pre-operative results and documents have been reviewed as part of the pre-operative evaluation. Informed Consent: The patient's anesthetic plan and its attendant risks and benefits were discussed with the patient/family/POA. Questions were solicited and answers provided to the satisfaction of the patient/family/POA.
[2024-01-28 06:45] VITALS: BP 134/74; PULSE 70; RESP 18; TEMP 36.9; O2SAT 100
[2024-01-28] MEDS: LACTATED RINGERS 1,000 ML 30 ML IV CONT ×2 (06:45→08:05)
[2024-01-28] MEDS: KETOROLAC 15 MG/ML VIAL (*BKC) IV PUSH (07:00)
[2024-01-28] MEDS: ACETAMINOPHEN 500 MG TABLET 1000 MG PO (07:00)
--- NOTE | 2024-01-28 08:04 | W.PM.PROC2 ---
Procedure Note - Detailed Date of Procedure 01/28/24 Pre-op Diagnosis pelvic pain, irr bleeding Post-op Diagnosis Other (Pelvic pain / endometriosis/ bilateral ovarian cyst /irregular bleeding Pelvic congestion) Procedure Performed laparoscopy with destruction of endometriosis destruction cyst. Hysteroscopy. Dilatation curettage. Surgeon Nicolas Malcolm MD Anesthesia General Indications 28-year-old multiparous patient with pelvic pain and irregular bleeding Findings simple ovarian cysts bilaterally. Large tortuous veins surrounding the uterus and cervix. Small area of endometriosis along the right uterosacral ligament. Normal-appearing appendix liver gallbladder. Description of Procedure patient was prepped draped in the usual fashion placed in dorsal lithotomy position. Excellent trach anesthesia weighted speculum placed in posterior fornix vagina. Anterior the cervix grasped with single-tooth tenaculum Clark's cannula inserted the cervix attached to the single-tooth. This would be used later for uterine manipulation. Bladder emptied of clear urine. The weighted speculum was removed the gloves were changed. Infraumbilical incision made Veress needle passed in the. Abdomen filled with CO2 gas [id number] the 5mm trocar advanced under the scope no injury seen. Patient placed in Trendelenburg and a suprapubic incision made. The 5mm trocar advanced under direct visualization assuring no injury. The above findings were seen. Using electrocautery at 35 w per 2nd with monopolar manner this was a burned in the role of the right uterosacral ligament. Ovarian cyst were seen bilaterally these were opened in linear fashion and drained of follicular fluid. Irrigation undertaken to clear and no other abnormalities were seen. Large tortuous blood vessels were seen surrounding the uterus consistent with pelvic congestion. Her the instruments were withdrawn is the after gas removed from the abdomen. Incisions closed with 4 Monocryl and glue. Attention was turned to the hysteroscopic portion the procedure. Uterus sounded to 7cm. Serial dilatation with fragmented dilators performed followed by passage of the 5mm visualizing hysteroscope using normal saline as visualizing medium. Irregular thick endometrial tissue was seen each fallopian tube osCould be seen but no evidence of definitive pathology was noted. The uterus was scraped the entire 360? until a good grating sound was heard. The instruments withdrawn the patient went recovery in satisfactory fashion. All sponge, needle, instrument counts were correct. There were no immediate complications Estimated Blood Loss 5 Drains No Packing No Pathology Yes Complications No immediate complications Condition Stable Disposition PACU
[2024-01-28 08:05] VITALS: BP 145/79; PULSE 83; RESP 19; TEMP 36.7; O2SAT 99
[2024-01-28] MEDS: fentaNYL CITRATE INJ (*CRX) 100 MCG/2 ML VIAL 25 MCG IV PUSH ×4 (08:06→08:33)
[2024-01-28 08:15] VITALS: BP 115/55; PULSE 56; RESP 12; O2SAT 99
[2024-01-28 08:30] VITALS: BP 109/73; PULSE 57; RESP 12; O2SAT 100
[2024-01-28 08:44] VITALS: BP 123/66; PULSE 65
[2024-01-28] MEDS: oxyCODONE HCL (*CRX) 5 MG TAB IR PO (08:56)
[2024-01-28 09:15] VITALS: BP 117/80; PULSE 56
== END 2024-01-28 09:25 | disposition home or self-care (01) ==
PROVIDERS: PCP Internal Medicine; Visit Provider Obstetrics & Gynecology
PROC: 0UDB8ZZ Extraction of Endometrium, Via Natural or Artificial Opening Endoscopic (ICD-10-PCS; CPT 58558; principal; 2024-01-28 07:30)
DX: N80.3C1 Endometriosis of the right uterosacral ligament, unspecified depth (principal); N83.292 Other ovarian cyst, left side; N83.291 Other ovarian cyst, right side; N93.9 Abnormal uterine and vaginal bleeding, unspecified; Z87.891 Personal history of nicotine dependence
CPT/HCPCS: 58662; 58558; 88305; A9270; J0330; J1100; J1885; J2250; J2405; J2704; J3010; J7030; J7120

== ENCOUNTER 2025-03-03 09:33 | Outpatient (RCR) | payer BC, SELFPAY ==
[2025-03-03] MEDS: RHO(D) IMMUNE GLOBULIN 300 MCG/2 ML SYRINGE IM (10:00)
== END 2025-05-30 23:59 | disposition home or self-care (01) ==
LOC: ANHLAB 09:33
PROVIDERS: PCP Internal Medicine; Visit Provider Obstetrics & Gynecology
DX: Z36.89 Encounter for other specified antenatal screening (principal)
CPT/HCPCS: 36415; 85461; 86850; 86900; 86901; 90384; 96372; J2790

== ENCOUNTER 2025-05-15 09:40 | Observation (INO) | payer BC, SELFPAY ==
[2025-05-15] VITALS (11 sets, daily range): BP systolic 103–134; BP diastolic 72–84; PULSE 70–86; BMI 37.8
--- NOTE | 2025-05-15 10:38 | OBADM ---
This patient, Lia Morocho, admitted to the OB room OB Post 115 for observation. Patient/family oriented to hospital policies and general routines including ID bracelet, bed and alarms, visiting hours, pain management, procedures, bathroom and other care routines, personal items, smoking policy, room service/diet, and visiting hours. Patient/Family are encouraged to report perceived risks to care and to ask questions if they do not understand what they are told or what they should do.
--- NOTE | 2025-05-15 11:57 | PM.OBTRLD ---
OB - Triage/Final Diagnosis Visit Information Date of evaluation: 05/15/25 Reason for evaluation: other ( fall) Comments/Additional reasons for admission: I have assessed the risk for this patient, Lia A Lineback, and determined that she would benefit from observation care. Evaluation Vital signs: Vital Signs - 24 hr 05/15/25 09:55 05/15/25 10:01 05/15/25 10:16 Pulse Rate 86 83 78 Blood Pressure 130/83 119/76 132/79 Oxygen Delivery 05/15/25 10:31 05/15/25 10:36 05/15/25 10:46 Pulse Rate 81 77 Blood Pressure 134/81 127/84 Oxygen Delivery Room Air 05/15/25 11:01 05/15/25 11:16 05/15/25 11:30 Pulse Rate 77 80 75 Blood Pressure 114/77 103/72 117/77 Oxygen Delivery 05/15/25 11:46 Pulse Rate 70 Blood Pressure 121/75 Oxygen Delivery
== END 2025-05-15 12:19 | disposition home or self-care (01) ==
PROVIDERS: Admitting Provider Obstetrics & Gynecology; PCP Internal Medicine; Visit Provider Obstetrics & Gynecology
DX: O9A.213 Injury, poisoning and certain other consequences of external causes complicating pregnancy, third trimester (principal); T14.90XA Injury, unspecified, initial encounter; Z3A.38 38 weeks gestation of pregnancy; W19.XXXA Unspecified fall, initial encounter
CPT/HCPCS: G0378; G0379

== ENCOUNTER 2025-05-16 05:57 | Inpatient (IN) | payer BC, SELFPAY ==
[2025-05-16] VITALS (118 sets, daily range): BP systolic 104–152; BP diastolic 63–115; PULSE 63–169; RESP 16–20; TEMP 36.4–36.8; O2SAT 93–100; BMI 37.5
--- NOTE | 2025-05-16 06:35 | PM.IMHP ---
H&P: HPI History of Present Illness Date/Time: 05/16/25 06:35 Chief Complaint: Medical induction of labor at term for gestational hypertension Narrative: 29-year-old 2 para 1 whose last menstrual period is unknown but EDC is 05/27/2025 confirmed by 8 week ultrasound presents and 39 weeks gestation for induction of labor secondary to elevated blood pressures. She is negative for group B strep and received RhoGAM at 28 weeks she does have a 2 vessel cord. Her blood pressures the last 3 weeks have been elevated. PIH labs have been negative so far Review of Systems Review of Systems: All systems reviewed & are unremarkable except as noted in HPI and below PMFSH Past Medical History Medical History Overweight (BMI 25.0-29.9) Endometriosis Scoliosis Healthy adult Family History Family History Father Colon cancer Social History Social History Smoking status: Never smoker Tobacco type: cigarettes Second hand tobacco smoke exposure: No Alcohol intake: current Drinks per week: 1 Substance use: never Substance use type: does not use Lack of Transportation: No Lack of Food: Never True Current Housing: I Have Housing Concerned About Future Housing: No Difficulty Paying Gas/Electric Bills: No Difficulty Paying for Meds: No Currently Unemployed: No Education: Associate Degree Difficulty w/ Childcare or Family Care: No Living arrangements: with family Additional living arrangements comments: HUSB & CHILD Spiritual care concerns: No Meds Home Medications and Allergies Home Medications ?Medication ?Instructions ?Recorded ?Confirmed ?Type vit no.95-ferrous 1 tablet PO DAILY 05/09/25 05/09/25 History fumarate 28 mg-folic acid 800 mcg tablet () Allergies Allergy/AdvReac Type Severity Reaction Status Date / Time No Known Allergies Allergy Verified 05/09/25 14:26 Vital Signs Vital Signs - 24 hr 05/16/25 06:09 05/16/25 06:15 05/16/25 06:28 Pulse Rate 101 H 85 Blood Pressure 126/80 132/71 Pulse Oximetry 98 05/16/25 06:30 05/16/25 06:30 05/16/25 06:30 Pulse Rate Blood Pressure Pulse Oximetry 98 98 98 10/07/25 06:35 Pulse Rate Blood Pressure Pulse Oximetry 99 Exam Const: General: cooperative, healthy appearing and comfortable Nutritional Appearance: average body habitus Orientation/consciousness: oriented to person, oriented to place and oriented to time HENMT: Head: normal to inspection Resp: Effort & Inspection: normal respiratory effort Cardio: Rate: regular rate Rhythm: regular rhythm Heart sounds: S1 normal heart sound present and S2 normal heart sound present GI: Inspection: normal to inspection (Gravid soft uterus) : External Female Exam: normal external appearance Speculum Exam - Vagina: normal appearance of the vagina Speculum Exam - Cervix: normal appearance of the cervix (Cervix 2-3/60/-2. AROM clear. FHT is reassuring) Assessment and Plan Assessment and plan (1) Term : Code(s): Z34.90 - Encounter for supervision of normal , unspecified, unspecified trimester Status: Acute (2) Gestational hypertension: Code(s): O13.9 - Gestational [-induced] hypertension without significant proteinuria, unspecified trimester Status: Acute Plan Checked PIH labs. Medical induction of labor. Spontaneous vaginal delivery is expected. She is an epidural candidate
[2025-05-16] MEDS: OXYTOCIN 30 UNITS/NS 500 ML 30 UNITS/500 ML BAG IV CONT (06:38)
[2025-05-16] MEDS: LACTATED RINGERS 1,000 ML 125 ML IV CONT ×2 (06:38→09:51)
[2025-05-16 06:40] LABS: Hematocrit 32.7 % (37.0-47.0); Hemoglobin 10.9 g/dL (12.0-15.0); Immature Granulocyte Percent A 0.6 % (0-0.5); Lymphocytes Absolute Auto 2.04 K/mm3 (0.9-3.2); Mean Corpuscular HGB Conc 33.3 g/dl (32-36); Mean Corpuscular Hemoglobin 27.7 pg (26-34); Mean Corpuscular Volume 83.0 fl (80-100); Nucleated Red Blood Cells Absolute Auto 0.000 K/mm3 (0.0-0.012); Nucleated Red Blood Cells Perc 0.0 % (0.0-0.2); Platelet Count Result 226 k/mm3 (150-375); Red Blood Count 3.94 M/mm3 (4.2-5.4); White Blood Count 10.3 K/mm3 (4.5-10.0)
--- NOTE | 2025-05-16 06:49 | LDADM ---
This patient, Lia Morocho, was admitted to Labor/Delivery/Recovery 106 on 05/16/25 at 05:57. Plans for labor, pain management and were discussed with patient. Patient/family oriented to hospital policies and general routines including ID bracelet, bed and alarms, visiting hours, pain management, procedures, bathroom and other care routines, personal items, smoking policy, room service/diet and guest tray routines, security routines, and visiting hours. Patient/Family are encouraged to report perceived risks to care and to ask questions if they do not understand what they are told or what they should do. See OBIX for further documentation.
[2025-05-16 07:08] LABS: Alanine Aminotransferase 38 U/L (6-35); Albumin Level 3.3 g/dL (3.5-5.1); Alkaline Phosphatase 145 U/L (38-126); Anion Gap 9 mmol/L (4-12); Aspartate Amino Transferase 33 U/L (14-36); Bilirubin,Total 0.7 mg/dL (0.2-1.3); Blood Urea Nitrogen 4 mg/dL (7-17); Calcium 8.4 mg/dL (8.4-10.2); Carbon Dioxide 17 mmol/L (22-30); Chloride 109 mmol/L (98-107); Estimated CRCL calculation 192 ml/min; Estimated Glomerular Filt Rate > 60; Glucose 101 mg/dL (65-110); Potassium 3.1 mmol/L (3.4-5.0); Sodium 135 mmol/L (137-145); Total Protein 6.1 g/dL (6.3-8.2); Uric Acid 3.6 mg/dL (2.5-7.5)
[2025-05-16 07:17] LABS: Syphilis IgG/IgM Antibody Non-Reactive (Nonreactive)
--- NOTE | 2025-05-16 11:47 | PM.OBPNLAB ---
Pain Control Date/time seen: 05/16/25 11:47 Pain control: tolerating well and epidural Pelvic Exam Dilation (cm): 5 Effacement (%): 80 station: -2 Amniotic membrane status: Leaking Contractions Monitor mode: Internal
[2025-05-16] MEDS: FAMOTIDINE 20 MG/2 ML VIAL IV PUSH (11:54)
--- NOTE | 2025-05-16 12:08 | WPDANESEPPF ---
Anes - Initial Pre Proc Eval Procedure: labor epidural Date/Time: 05/16/25 12:08 Surgeon: Nicolas Malcolm MD Pre Op Diagnosis: labor pain Pre Op Diagnosis: IOL Patient Data Age: 29 Gender: F Height: 1.73 m Weight: 112.2 kg Last Vital Signs Temp 36.5 C 05/16/25 10:12 Pulse 75 05/16/25 12:00 BP 120/63 05/16/25 12:00 Pulse Ox 100 05/16/25 12:08 O2 Del Method Room Air 05/16/25 06:49 Allergies Allergy/AdvReac Type Severity Reaction Status Date / Time No Known Allergies Allergy Verified 05/09/25 14:26 Home Medications ?Medication ?Instructions ?Recorded ?Confirmed ?Type vit no.95-ferrous 1 tablet PO DAILY 05/09/25 05/09/25 History fumarate 28 mg-folic acid 800 mcg tablet () Laboratory Tests 05/16/25 06:17 WBC 10.3 H K/mm3 (4.5-10.0) RBC 3.94 L M/mm3 (4.2-5.4) Hgb 10.9 L g/dL (12.0-15.0) Hct 32.7 L % (37.0-47.0) MCV 83.0 fl (80-100) MCH 27.7 pg (26-34) MCHC 33.3 g/dl (32-36) RDW 13.9 % (11.5-14.5) Plt Count 226 k/mm3 (150-375) MPV 10.3 fl (7.4-10.4) Immature Gran % (Auto) 0.6 H % (0-0.5) Neut % (Auto) 74.4 H % (45.5-73.1) Lymph % (Auto) 19.9 % (18.3-44.2) [place] % (Auto) 4.5 % (2.6-8.5) Eos % (Auto) 0.4 % (0-4.4) Baso % (Auto) 0.2 % (0.2-1.2) Lymph # (Auto) 2.04 K/mm3 (0.9-3.2) [place] # (Auto) 0.5 K/mm3 (0.1-0.6) Eos # (Auto) 0.0 K/mm3 (0-0.3) Baso # (Auto) 0.0 K/mm3 (0.0-0.1) Abs Immat Gran (auto) 0.06 H K/mm3 (0.00-0.031) Absolute Neuts (auto) 7.7 H K/mm3 (1.3-6.7) Absolute Nucleated RBC 0.000 K/mm3 (0.0-0.012) Nucleated RBC % 0.0 % (0.0-0.2) Sodium 135 L mmol/L (137-145) Potassium 3.1 L mmol/L (3.4-5.0) Chloride 109 H mmol/L (98-107) Carbon Dioxide 17 L mmol/L (22-30) Anion Gap 9 mmol/L (4-12) BUN 4 L mg/dL (7-17) Creatinine 0.48 L mg/dL (0.7-1.0) Estim Creat Clear Calc 192 ml/min Estimated GFR > 60 (59 - ) Glucose 101 mg/dL (65-110) Uric Acid 3.6 mg/dL (2.5-7.5) Calcium 8.4 mg/dL (8.4-10.2) Total Bilirubin 0.7 mg/dL (0.2-1.3) AST 33 U/L (14-36) ALT 38 H U/L (6-35) Alkaline Phosphatase 145 H U/L (38-126) Total Protein 6.1 L g/dL (6.3-8.2) Albumin 3.3 L g/dL (3.5-5.1) Syphilis IgG/IgM Ab Non-reactive (Nonreactive) Blood Type O Negative Antibody Screen Positive Antibody Identification Inconclusive Antigen Identification Not Reportable ANDREW, IgG Interpret Not Performed ANDREW, Poly Interpret Negative ANDREW, Complement Interp Not Performed Patient hx anesthesia problems: none Family hx anesthesia problems: none Results Review: All pre-operative results and documents have been reviewed as part of the pre-operative evaluation. [facility] Past Medical History Medical History Overweight (BMI 25.0-29.9) Endometriosis Scoliosis Healthy adult Family History Family History Father Colon cancer Social History Social History Smoking status: Never smoker Tobacco type: cigarettes Second hand tobacco smoke exposure: No Alcohol intake: current Drinks per week: 1 Substance use: never Substance use type: does not use Lack of Transportation: No Lack of Food: Never True Current Housing: I Have Housing Concerned About Future Housing: No Difficulty Paying Gas/Electric Bills: No Difficulty Paying for Meds: No Currently Unemployed: No Education: High School Diploma/GED Difficulty w/ Childcare or Family Care: No Living arrangements: with family Additional living arrangements comments: HUSB & CHILD Spiritual care concerns: No Anes - Eval Final PreProcedure Day of Procedure 05/16/25 12:08 Patient weight: obese ASA classification: III Anesthetic plan: proceed Anesthesia type and monitoring: regional epidural and standard monitoring Results Review: All pre-operative results and documents have been reviewed as part of the pre-operative evaluation. Informed Consent: The patient's anesthetic plan and its attendant risks and benefits were discussed with the patient/family/POA. Questions were solicited and answers provided to the satisfaction of the patient/family/POA.
--- NOTE | 2025-05-16 12:42 | PM.OBPRVD ---
OB - Vaginal Delivery Note Procedure Delivery date: 05/16/25 Events: Gestational Hypertension Induction method: AROM Delivery augmentation: Pitocin Delivery monitor: External FHT and Internal Uterine Route of delivery: Episiotomy description: None Laceration Description: None Specimen: No Quantitative Blood Loss (ml): 62 Anesthesia type: Epidural Disposition: Floor Complications: No immediate complications [place] Baby Date of : 05/16/25 Time of : 12:32 Gestational Age by Date: 40 gender: Male presentation: vertex position: Right Occiput Anterior Placenta delivery description: Spontaneous Cord Vessel Description: 2 Vessels, Nuchal Cord, Loose and Reduced score one minute: 7 score five minutes: 9
--- NOTE | 2025-05-16 12:44 | P.DS_ITS ---
DS: Admitting Diagnosis Discharge Date 05/17/2025 Admitting Diagnosis Term /gestational hypertension DS: Discharge Diagnosis Discharge Diagnosis (1) Term : Code(s): Z34.90 - Encounter for supervision of normal , unspecified, unspecified trimester Status: Acute (2) Gestational hypertension: Code(s): O13.9 - Gestational [-induced] hypertension without significant proteinuria, unspecified trimester Status: Acute DS: Summary Hospital Course Reason for hospitalization: Patient was admitted for induction of labor at 3867 weeks gestation for gestational hypertension. She underwent spontaneous vaginal delivery at 12:32 p.m. on 05/16/2025. Hospital Course: Patient's hospital course unremarkable. She remained afebrile. Blood pressures were stable. She was up, voiding without difficulty, regular diet, ambulating, and generally without complaints Time Spent with Patient Time attestation: Total time spent providing and/or coordinating discharge services: Exam Const: General: cooperative, healthy appearing and comfortable Nutritional Appearance: average body habitus Orientation/consciousness: oriented to person, oriented to place and oriented to time HENMT: Head: normal to inspection Resp: Effort & Inspection: normal respiratory effort Cardio: Rate: regular rate Rhythm: regular rhythm Heart sounds: S1 normal heart sound present and S2 normal heart sound present GI: Inspection: normal to inspection (Gravid soft uterus) : External Female Exam: normal external appearance Speculum Exam - Vagina: normal appearance of the vagina Speculum Exam - Cervix: normal appearance of the cervix (Cervix 2-3/60/-2. AROM clear. FHT is reassuring) DS: Data Data Completed and Pending Labs on day of discharge: Labs from last 24 hours 05/16/25 06:17 WBC 10.3 H RBC 3.94 L Hgb 10.9 L Hct 32.7 L MCV 83.0 MCH 27.7 MCHC 33.3 RDW 13.9 Plt Count 226 MPV 10.3 Immature Gran % (Auto) 0.6 H Neut % (Auto) 74.4 H Lymph % (Auto) 19.9 [place] % (Auto) 4.5 Eos % (Auto) 0.4 Baso % (Auto) 0.2 Lymph # (Auto) 2.04 [place] # (Auto) 0.5 Eos # (Auto) 0.0 Baso # (Auto) 0.0 Abs Immat Gran (auto) 0.06 H Absolute Neuts (auto) 7.7 H Absolute Nucleated RBC 0.000 Nucleated RBC % 0.0 Sodium 135 L Potassium 3.1 L Chloride 109 H Carbon Dioxide 17 L Anion Gap 9 BUN 4 L Creatinine 0.48 L Estim Creat Clear Calc 192 Estimated GFR > 60 Glucose 101 Uric Acid 3.6 Calcium 8.4 Total Bilirubin 0.7 AST 33 ALT 38 H Alkaline Phosphatase 145 H Total Protein 6.1 L Albumin 3.3 L Syphilis IgG/IgM Ab Non-reactive Blood Type O Negative Antibody Screen Positive Antibody Identification Inconclusive Antigen Identification Not Reportable ANDREW, IgG Interpret Not Performed ANDREW, Poly Interpret Negative ANDREW, Complement Interp Not Performed Discharge Plan Discharge Attending physician on discharge: Nicolas Cruz Discharging Clinician: Nicolas Cruz Patient Disposition: Home Activity: may shower, no straining and pelvic rest Diet: heart healthy Wound Care Instructions: follow printed instructions Patient Instructions: Antibiotic Form Patient Language: Slovak Stand Alone Forms: General Discharge Information Follow-up/Referrals: Nicolas Cruz MD [Physician, [facility]] Discharge Medications: Continued PNV no.95-ferrous fumarate-FA [] 28 mg iron- 800 mcg tablet 1 tablet PO DAILY Date of admission: 05/16/25 05:57 Primary Care Provider: Lamar Viera Admitting Provider: Nicolas Cruz Attending physician on admission: Nicolas Cruz Condition: Stable
[2025-05-16] MEDS: OXYTOCIN 30 UNITS/NS 500 ML 30 UNITS/500 ML BAG 125 UNITS IV CONT (13:11)
--- NOTE | 2025-05-16 16:09 | OBPPTRN ---
Patient transferred to post room #280 via WC. Support person present. Oriented to unit, room, information board, rooming in, admission packet and security measures. Patient verbalizes understanding.
[2025-05-17] VITALS (7 sets, daily range): BP systolic 129–146; BP diastolic 63–89; PULSE 72–92; RESP 16–18; TEMP 36.6–37.7; O2SAT 98–100
[2025-05-17] MEDS: IBUPROFEN 600 MG TABLET PO (04:17)
[2025-05-17 05:11] LABS: Hematocrit 32.1 % (37.0-47.0); Hemoglobin 10.4 g/dL (12.0-15.0)
--- NOTE | 2025-05-17 07:01 | P.PNOB_ITS ---
OB - PN: Subj Subjective Date/time seen: 05/17/25 07:01 Patient comments: no complaints, pain well controlled and tolerating diet baby status: doing well OB - PN: Obj Data Labs 05/17/25 03:32 05/16/25 06:17 Labs: Laboratory Results - last 24 hr 05/16/25 05/17/25 06:17 03:32 Hgb 10.4 L Hct 32.1 L Sodium 135 L Potassium 3.1 L Chloride 109 H Carbon Dioxide 17 L Anion Gap 9 BUN 4 L Creatinine 0.48 L Estim Creat Clear Calc 192 Estimated GFR > 60 Glucose 101 Uric Acid 3.6 Calcium 8.4 Total Bilirubin 0.7 AST 33 ALT 38 H Alkaline Phosphatase 145 H Total Protein 6.1 L Albumin 3.3 L Syphilis IgG/IgM Ab Non-reactive Blood Type O Negative O Negative Antibody Screen Positive Positive Antibody Identification Inconclusive Not Reportable Antigen Identification Not Reportable Not Reportable ANDREW, IgG Interpret Not Performed Not Performed ANDREW, Poly Interpret Negative Not Performed ANDREW, Complement Interp Not Performed Not Performed Screen Negative Baby's Blood Type A pos Baby's ANDREW Positive Doses of RhIg Required 1 OB - PN A/P Assessment and Plan (1) Term : Code(s): Z34.90 - Encounter for supervision of normal , unspecified, unspecified trimester Status: Acute (2) Gestational hypertension: Code(s): O13.9 - Gestational [-induced] hypertension without significant proteinuria, unspecified trimester Status: Acute Plan home Time Spent With Patient Time: Total time spent is greater than 50% in coordination of care (as documented) at patient's floor/unit and/or counseling patient: Review of Systems 2 Review of Systems: All systems reviewed & are unremarkable except as noted in HPI and below Exam 2 Const: General: cooperative, healthy appearing and comfortable Nutritional Appearance: average body habitus Orientation/consciousness: oriented to person, oriented to place and oriented to time HENMT: Head: normal to inspection Resp: Effort & Inspection: normal respiratory effort Cardio: Rate: regular rate Rhythm: regular rhythm Heart sounds: S1 normal heart sound present and S2 normal heart sound present GI: Inspection: normal to inspection (Gravid soft uterus) : External Female Exam: normal external appearance Speculum Exam - Vagina: normal appearance of the vagina Speculum Exam - Cervix: normal appearance of the cervix (Cervix 2-3/60/-2. AROM clear. FHT is reassuring)
[2025-05-17] MEDS: DOCUSATE SODIUM 100 MG CAPSULE PO (09:07)
--- NOTE | 2025-05-17 15:28 | WPDANLDPN2 ---
Anes-Prog Note L&D Date/Time: 05/17/25 15:28 Comfortable throughout: labor and delivery Neuraxial method: epidural Epidural/Spinal procedure site: clean & non-tender Neuro status: Neuro function grossly intact. Cardiovascular status: normal Respiratory status: normal Airway patency: baseline Mental status: baseline Post-Op hydration status: normal Vital Signs: Last Vital Signs Temp 37.7 C H 05/17/25 12:49 Pulse 74 05/17/25 12:49 Resp 16 05/17/25 12:49 BP 146/76 H 05/17/25 12:49 Pulse Ox 99 05/17/25 12:49 O2 Del Method Room Air 05/17/25 08:00 Pain score (VAS): 2 I/O: Intake & Output 05/16/25 05/17/25 05/17/25 23:59 07:59 15:59 Intake Total 400 Output Total 765 450 Balance -765 -50 Post-procedural complaints: none Patient feedback: Patient satisfied with anesthetic care.
[2025-05-17] MEDS: RHO(D) IMMUNE GLOBULIN 300 MCG/2 ML SYRINGE IM (16:59)
[2025-05-18 05:00] VITALS: BP 120/69; PULSE 80; RESP 16; TEMP 36.7; O2SAT 99
[2025-05-18 07:55] VITALS: BP 128/87; PULSE 85; RESP 16; TEMP 36.9; O2SAT 100
[2025-05-18 11:47] VITALS: BP 131/74; PULSE 72; RESP 16; TEMP 36.9; O2SAT 99
[2025-05-19 15:20] VITALS: BP 130/87; PULSE 72; RESP 18; TEMP 37.1; O2SAT 100
== END 2025-05-18 12:30 | disposition home or self-care (01) | DRG 807 ==
LOC: ANHLDR 12:45 → ANHOB2 16:30
PROVIDERS: Admitting Provider Obstetrics & Gynecology; PCP Internal Medicine; Visit Provider Obstetrics & Gynecology
DX: O13.4 Gestational [pregnancy-induced] hypertension without significant proteinuria, complicating childbirth (principal); Z37.0 Single live birth; Z3A.38 38 weeks gestation of pregnancy; O69.81X0 Labor and delivery complicated by cord around neck, without compression, not applicable or unspecified
CPT/HCPCS: 36415; 80053; 84550; 85014; 85018; 85025; 85461; 86593; 86850; 86880; 86900; 86901; 86902; 90384; A9270; J2590; J2790; J2795; J7120

== ENCOUNTER 2025-07-25 01:22 | Day surgery (SDC) | payer BC, SELFPAY ==
--- NOTE | 2025-07-24 13:14 | PC.NURSE ---
[facility] has started construction of its new state of the art ER which will open Spring 2026. With this, we anticipate parking may be a challenge for some our surgical patients and families. Parking spaces are limited but are available for all Surgical, obstetrics, and ER patients sharing this lot. If you arrive and find you are having a hard time finding a parking space, please note that we understand the challenges, please drive around the hospital and park near Hospital Entrance 1. When you enter this entrance, you can ask a volunteer to direct or take you back to the surgical waiting area to check in. We appreciate everyone?s understanding of these expected challenges while we build for your future. Report to the Outpatient Waiting Room, entrance under the green pavilion located off [address], at time __1 PM on date _07/25/25 . Planned Procedure Time: __3 PM .? Time changes happen often and if your time is changed the preop area will call you the afternoon before. - You and your visitor will be asked to self-screen and do not enter if you have any COVID symptoms. Please call surgeon if you need to reschedule. - A mask is optional within the hospital at this time. Patients may have clear liquids (water, carbonated beverages, clear teas, apple juice) until 3 hours prior to surgery( NOON) with a maximum of 20 ounces. - No food from midnight until time of surgery and no smoking, or chewing tobacco (or any form of nicotine). No chewing gum, candy or mints. - Take only the following medications with a SIP of water on the morning of surgery: TRANEXAMIC ACID DO NOT STOP ANY OF YOUR OTHER PRESCRIPTION MEDICATIONS PRIOR TO SURGERY EXCEPT THE FOLLOWING Hold all vitamins and supplements for 3 days per anesthesiologist. Medications to discontinue per physician NONE Please no make-up, nail bhutanese, hairspray, perfume, deodorant, or body powder the day of surgery.? No jewelry (including any body piercings) or valuables the day of surgery, leave them at home.? Please take a shower or bath the night before, or the morning of, surgery with an antibacterial soap.? Wear comfortable, loose fitting clothing.? Children are encouraged to wear pajamas. - Jewelry must be removed prior to entering the operating room.? Rings and piercings that are not removed may be cut off. - The hospital will not accept responsibility for valuables.? - Please leave all valuables, including medications, at home the day of surgery. If you are going home after surgery, a licensed taxicab driver must drive you home.? - NO public transportation without another adult if you receive anesthesia. - We recommend that an adult stay with you for 24 hours following discharge. - We also recommend that you do not drive, make important decision, drink alcoholic beverages, or take any drugs that were not prescribed by your health care provider for at least 24 hours after your discharge time. For Pediatric surgeries, we recommend two adults accompany the child home. Follow any additional instructions given to you from your surgeon. Telephone instructions given to __PATIENT and asked if any additional questions and then verbalized understanding. Patient advised to call surgeon office or pre surgery nurse liaison [phone] if any additional questions.
[2025-07-24 13:20] VITALS: BMI 34.5
--- NOTE | 2025-07-25 00:06 | P.HP_ITS ---
H&P: HPI History of Present Illness Date/Time: 07/25/25 00:06 Chief Complaint: bleeding Narrative: 29-year-old female status post vaginal delivery with bleeding ultrasound shows thickened endometrium but no definitive placental tissue. She continues to bleed despite medical therapy risks and benefits reviewed Review of Systems Review of Systems: All systems reviewed & are unremarkable except as noted in HPI and below PMFSH Past Medical History Medical History Overweight (BMI 25.0-29.9) Endometriosis Scoliosis Healthy adult Family History Family History Father Colon cancer Social History Social History Smoking status: Never smoker Tobacco type: cigarettes Second hand tobacco smoke exposure: No Alcohol intake: current Drinks per week: 1 Substance use: never Substance use type: does not use Lack of Transportation: No Lack of Food: Never True Current Housing: I Have Housing Concerned About Future Housing: No Difficulty Paying Gas/Electric Bills: No Difficulty Paying for Meds: No Currently Unemployed: No Education: High School Diploma/GED Difficulty w/ Childcare or Family Care: No Living arrangements: with family Additional living arrangements comments: HUSB & CHILD Spiritual care concerns: No Meds Home Medications and Allergies Home Medications ?Medication ?Instructions ?Recorded ?Confirmed ?Type vit no.95-ferrous 1 tablet PO DAILY 05/09/25 07/24/25 History fumarate 28 mg-folic acid 800 mcg tablet () tranexamic acid 650 mg tablet 650 mg PO BID 07/24/25 1 09/24/24 History Allergies Allergy/AdvReac Type Severity Reaction Status Date / Time No Known Allergies Allergy Verified 07/24/25 13:11 Exam Const: General: cooperative, healthy appearing and comfortable Nutritional Appearance: average body habitus Orientation/consciousness: oriented to person, oriented to place and oriented to time HENMT: Head: normal to inspection Chest: Chest palpation & inspection: normal inspection of the chest Resp: Effort & Inspection: normal respiratory effort Cardio: Rate: regular rate Rhythm: regular rhythm Heart sounds: S1 normal heart sound present and S2 normal heart sound present GI: Inspection: normal to inspection : External Female Exam: normal external appearance Speculum Exam - Vagina: normal appearance of the vagina Speculum Exam - Cervix: normal appearance of the cervix (Open and bleeding) Bimanual exam- vagina & uterus: enlarged Bimanual Exam- Adnexa, other: normal adnexae Assessment and Plan Assessment and plan (1) bleeding: Code(s): O72.1 - Other immediate hemorrhage Status: Acute Plan Proceed with suction dilatation and curettage
--- NOTE | 2025-07-25 00:06 | WPDHPUPDATE1 ---
History and Physical Update Update Date/Time: 07/25/25 00:06 History and Physical has been reviewed, including an updated exam of the patient. There are NO changes in the patient's condition. Risks, benefits, and alternatives have been discussed and questions answered. Patient agrees to proceed with procedure.
[2025-07-25 14:01] LABS: Hematocrit 35.5 % (37.0-47.0); Hemoglobin 11.7 g/dL (12.0-15.0)
[2025-07-25 14:16] VITALS: BP 120/70; PULSE 76; TEMP 36.6; O2SAT 100; BMI 34.4
[2025-07-25] MEDS: ACETAMINOPHEN 500 MG TABLET 1000 MG PO (14:21)
--- NOTE | 2025-07-25 14:23 | WPDANESEPPF ---
Anes - Initial Pre Proc Eval Procedure: Operation Date: 07/25/25 15:00 Proposed Procedures p Suction Dilation and Curettage - Nicolas Malcolm MD Date/Time: 07/25/25 14:23 Surgeon: Nicolas Malcolm MD Pre Op Diagnosis: Bleeding Patient Data Age: 29 Gender: F Height: 1.73 m Weight: 102.9 kg Last Vital Signs Temp 36.6 C 07/25/25 14:16 Pulse 76 07/25/25 14:16 BP 120/70 07/25/25 14:16 Pulse Ox 100 07/25/25 14:16 O2 Del Method Room Air 07/25/25 14:16 Allergies Allergy/AdvReac Type Severity Reaction Status Date / Time No Known Allergies Allergy Verified 07/24/25 13:11 Home Medications ?Medication ?Instructions ?Recorded ?Confirmed ?Type vit no.95-ferrous 1 tablet PO DAILY 05/09/25 07/24/25 History fumarate 28 mg-folic acid 800 mcg tablet () tranexamic acid 650 mg tablet 650 mg PO BID 07/24/25 07/25/25 History hydrocodone 5 mg-acetaminophen 325 1 tablet PO Q4H PRN pain #14 tabs 07/25/25 Rx mg tablet Laboratory Tests 07/25/25 13:57 Hgb 11.7 L g/dL (12.0-15.0) Hct 35.5 L % (37.0-47.0) Patient hx anesthesia problems: none Family hx anesthesia problems: none Results Review: All pre-operative results and documents have been reviewed as part of the pre-operative evaluation. [facility] Past Medical History Medical History (Updated 07/25/25 @ 14:23 by Nicolas Worrell MD) Endometriosis Scoliosis Healthy adult Family History Family History Father Colon cancer Social History Social History Smoking status: Never smoker Tobacco type: cigarettes Second hand tobacco smoke exposure: No Alcohol intake: current Drinks per week: 1 Substance use: never Substance use type: does not use Lack of Transportation: No Lack of Food: Never True Current Housing: I Have Housing Concerned About Future Housing: No Difficulty Paying Gas/Electric Bills: No Difficulty Paying for Meds: No Currently Unemployed: No Education: High School Diploma/GED Difficulty w/ Childcare or Family Care: No Living arrangements: with family Additional living arrangements comments: HUSB & CHILD Spiritual care concerns: No Anes - Eval Final PreProcedure Day of Procedure 07/25/25 14:23 Patient weight: obese Heart: regular rate and rhythm Lungs: clear to auscultation Airway: Mallampati scale class II Neurological: alert and oriented Last oral intake: >/= 8 hours ASA classification: II Emergent: no Anesthetic plan: proceed Anesthesia type and monitoring: general GIVS and standard monitoring Results Review: All pre-operative results and documents have been reviewed as part of the pre-operative evaluation. Informed Consent: The patient's anesthetic plan and its attendant risks and benefits were discussed with the patient/family/POA. Questions were solicited and answers provided to the satisfaction of the patient/family/POA.
[2025-07-25] MEDS: LIDOCAINE 1% LOCAL INJ 10 ML VIAL INFILTRATE (15:10)
--- NOTE | 2025-07-25 15:17 | S_PTH ---
PATIENT: Lai Morocho LOC: [facility] U#:[id number] AGE/SX: 29/F ROOM: RE07/25/[address]: Nicolas Malcolm MD : 1995 BED: DIS: 07/25/2025 SPEC #: [id number] RECD: 07/26/25 07:42 STATUS: VANI REElsi #: [id number] SANTANA: 07/25/25 15:[address]: Nicolas Cruz DEPT: [facility] Surgical RECD BY: Katrin Abernathy ENTERED: 07/26/25 07:42 SP TYPE: Surgical OTHR DR: RAILROAD CARMAN PHYSICIAN Tissues: A - Uterine Contents Procedures: Hematoxylin and Eosin Stain Gross and Microscopic Level 4
[2025-07-25] MEDS: KETOROLAC 15 MG/ML VIAL (*BKC) IV PUSH (15:18)
--- NOTE | 2025-07-25 15:20 | P.OP_ITS ---
Procedure Note - Detailed Date of Procedure 07/25/25 Pre-op Diagnosis Bleeding Post-op Diagnosis Same Procedure Performed Suction dilatation curettage Surgeon Nicolas Malcolm MD Anesthesia MAC and Local Indications This is a 29-year-old female bleeding about 8 weeks out from delivery Findings Uterus sounded 10cm thick endometrial tissue Description of Procedure Patient was prepped draped in the normal sterile fashion placed in the dorsal lithotomy position. Under excellent IV cyst sedation posterior fornix. Anterior lip of the cervix grasped with single-tooth. 2.5cc 1% xylocaine anesthesia placed equally at 2, 4, 8, 10:00 a.m. of the cervix. Uterus sounded to 10cm. Serial dilatation fragmented dilators performed followed by passes the 10 cyst mm suction curette was passed several times a good amount of fluid and a small amount of tissue the instruments withdrawn after good grating sound was heard blood loss estimated 25cc. All sponge, needle, instrument counts were cor rect Estimated Blood Loss 25 Drains No Packing No Pathology Yes Complications No immediate complications Condition Stable Disposition PACU
[2025-07-25 15:23] VITALS: BP 101/51; PULSE 76; RESP 18; O2SAT 100
[2025-07-25] MEDS: LACTATED RINGERS 1,000 ML 30 ML IV CONT (15:23)
[2025-07-25 15:50] VITALS: BP 120/68; PULSE 66; RESP 18; O2SAT 100
[2025-07-25 16:15] VITALS: BP 114/66; PULSE 61; RESP 16
== END 2025-07-25 16:25 | disposition home or self-care (01) ==
PROVIDERS: Visit Provider Obstetrics & Gynecology
PROC: (CPT 59160; principal; 2025-07-25 15:00)
DX: O72.2 Delayed and secondary postpartum hemorrhage (principal)
CPT/HCPCS: 59160; 36415; 85014; 85018; 88305; A9270; J1885; J2003; J2250; J2704; J3010; J7120